=== PATIENT | male | born 1970 | race Caucasian/White ===

== ENCOUNTER 2019-12-12 06:22 | Day surgery (SDC) | payer MEDICARE, MEDICAID, SELFPAY ==
[2019-12-05 15:05] VITALS: BMI 37.5
--- NOTE | 2019-12-11 09:07 | HO.ANESPROP2 ---
Documented by User: Marilin Burch 12/11/19 09:08 HPI - Anesthesia Eval Consult details Narrative: 49yo M for Colonoscopy FOR[facility] Past Medical History Medical History Anxiety Back pain CVA (cerebral vascular accident) Depression Diabetes Elevated cholesterol HTN (hypertension) Hx of renal calculi PTSD (post-traumatic stress disorder) Sleep apnea Surgical History Surgical History H/O rotator cuff surgery Hx of lithotripsy Social History Social History Smoking Status: Former smoker Smoked in Last 30 Days: No Smoking Quit Date: 2009 Use of substances other than those prescribed or required for medical reasons: Yes Substance Use Frequency: Occasionally Advance Directives Information Provided: No Recently lost weight without trying: No Meds Allergies Allergy/AdvReac Type Severity Reaction Status Date / Time gabapentin Allergy Severe Confusion Verified 12/05/19 15:28 ibuprofen AdvReac Intermediate Gastrointestinal Verified 12/05/19 15:28 Upset Home Medications Medication Instructions Recorded Confirmed Type amlodipine [Norvasc] 5 mg PO DAILY 12/05/19 12/12/19 History ascorbic acid (vitamin C) [Vitamin 500 mg PO DAILY 12/05/19 12/05/19 History C] aspirin [Aspirin Low-Strength] 81 mg PO DAILY 12/05/19 12/05/19 History atorvastatin 40 mg PO BEDTIME 12/05/19 12/05/19 History hydrocodone-acetaminophen 1 tab PO BID PRN 12/05/19 12/05/19 History lisinopril 10 mg PO DAILY 12/05/19 12/05/19 History lorazepam 1 mg PO TID 12/05/19 12/12/19 History magnesium oxide 500 mg PO DAILY 12/05/19 12/12/19 History metformin 500 mg PO BID 12/05/19 12/05/19 History omega 7-uyi-hly-fish oil [Fish Oil] 1 cap PO DAILY 12/05/19 12/05/19 History simethicone 125 mg PO QID PRN 12/05/19 12/05/19 History tamsulosin 0.4 mg PO DAILY 12/05/19 12/05/19 History Exam Exam Date and Time: December 11, 2019 0907 Height,Weight and Vital Signs: Height 5 ft 2 in Weight 92.986 kg Assessment and Plan Assessment Anesthesia Assessment: Chart Reviewed Documented by User: Leny Azevedo 12/12/19 07:20 [facility] Past Medical History Medical History Anxiety Back pain CVA (cerebral vascular accident) Depression Diabetes Elevated cholesterol HTN (hypertension) Hx of renal calculi PTSD (post-traumatic stress disorder) Sleep apnea Surgical History Surgical History H/O rotator cuff surgery Hx of lithotripsy Social History Social History Smoking Status: Former smoker Smoked in Last 30 Days: No Smoking Quit Date: 2009 Use of substances other than those prescribed or required for medical reasons: Yes Substance Use Frequency: Occasionally Advance Directives Information Provided: No Recently lost weight without trying: No Meds Allergies Allergy/AdvReac Type Severity Reaction Status Date / Time gabapentin Allergy Severe Confusion Verified 12/05/19 15:28 ibuprofen AdvReac Intermediate Gastrointestinal Verified 12/05/19 15:28 Upset Home Medications Medication Instructions Recorded Confirmed Type amlodipine [Norvasc] 5 mg PO DAILY 12/05/19 12/12/19 History ascorbic acid (vitamin C) [Vitamin 500 mg PO DAILY 12/05/19 12/05/19 History C] aspirin [Aspirin Low-Strength] 81 mg PO DAILY 12/05/19 12/05/19 History atorvastatin 40 mg PO BEDTIME 12/05/19 12/05/19 History hydrocodone-acetaminophen 1 tab PO BID PRN 12/05/19 12/05/19 History lisinopril 10 mg PO DAILY 12/05/19 12/05/19 History lorazepam 1 mg PO TID 12/05/19 12/12/19 History magnesium oxide 500 mg PO DAILY 12/05/19 12/12/19 History metformin 500 mg PO BID 12/05/19 12/05/19 History omega 1-lnb-iuq-fish oil [Fish Oil] 1 cap PO DAILY 12/05/19 12/05/19 History simethicone 125 mg PO QID PRN 12/05/19 12/05/19 History tamsulosin 0.4 mg PO DAILY 12/05/19 12/05/19 History Exam Airway Mallampati Class: III TM Dist: >3cm Neck ROM: Full
[2019-12-12 06:46] VITALS: BP 146/95; PULSE 74; RESP 18; TEMP 36.5; O2SAT 7
[2019-12-12 06:46] LABS: Glucose, Whole Blood 165 mg/dL (60-115)
[2019-12-12] MEDS: Lactated Ringers 1,000 ML 100 ML IVCONT (06:58)
--- NOTE | 2019-12-12 07:45 | MHC.SHP ---
Pre-Procedural Eval Section A The patient is an INPATIENT: No The History & Physical has been completed within 30 days and I have reviewed it.: Yes Section B Chief Complaint: rectal bleed, screening Allergies: Allergies Allergy/AdvReac Type Severity Reaction Status Date / Time gabapentin Allergy Severe Confusion Verified 12/05/19 15:28 ibuprofen AdvReac Intermediate Gastrointestinal Verified 12/05/19 15:28 Upset Plan Diagnosis/Plan: Unchanged Patient has been examined and remains a candidate for the planned procedure
--- NOTE | 2019-12-12 08:28 | PM.OP ---
Brief Operative Note Date of procedure: 12/12/19 Pre-op diagnosis: colon cancer screening Post-op diagnosis: other (Colonic polyps) Procedure: Colonoscopy with excisional polypectomies x 2 cold bx forceps Implants: none Surgeon: Rasheeda Maguire MD Anesthesia: MAC (Tianna Sheppard CRNA) Estimated blood loss (mL): 5 Pathology: other (distal transverse colon, rectosigmoid) Condition: stable Disposition: PACU
[2019-12-12 08:29] VITALS: BP 121/74; PULSE 85; RESP 16; TEMP 36.1; O2SAT 96
[2019-12-12 08:44] VITALS: BP 125/80; PULSE 81; RESP 16; O2SAT 97
[2019-12-12 08:58] VITALS: PULSE 78; RESP 18; TEMP 36.1; O2SAT 96
--- NOTE | 2019-12-12 09:20 | HO.POSTANES ---
Post Anesthesia Evaluation Post Anesthesia Evaluation Vital Signs: Vital Signs Temp Pulse Resp BP Pulse Ox 12/12/19 08:58 96.9 F 78 18 96 12/12/19 08:44 81 16 125/80 97 12/12/19 08:29 97 F 85 16 121/74 96 12/12/19 06:46 97.7 F 74 18 146/95 H 7 L Anesthesia: Monitored Mental Status: Awake Pain Control: Satisfactory Nausea/Vomiting: None Hydration: Adequate Anesthesia-Related Issues: No Anes. Related Issues
--- NOTE | 2019-12-12 11:43 | OP_ITS ---
SURGEON: Rasheeda Maguire MD PREOPERATIVE DIAGNOSES: Colon cancer screening, history of polyps. Comorbid med problems: Hypertension, Diabetes, Elevated BMI--36 POSTOPERATIVE DIAGNOSIS: Colonic polyp. PROCEDURE PERFORMED: Colonoscopy with excisional polypectomy x2. ESTIMATED BLOOD LOSS: Minimal. COMPLICATIONS: No complications. ANESTHESIA: Monitored. ANESTHESIOLOGIST: Juan Sheppard CRNA. ASSISTANTS: No assistant tennis coach. SPECIMENS: Specimens removed; distal transverse colon, rectosigmoid region. FINDINGS: Digital rectal exam revealed prostate to be normal to digital palpation. Prep was good to excellent. Scope was introduced without difficulty. It was navigated through the rectosigmoid, sigmoid, and up through descending, transverse, ascending colon down into the cecal cap. Appendiceal orifice was seen. Ileocecal valve was well seen. No mucosal abnormalities were appreciated in this area. Slow withdrawal of the scope. Good rotational views. In the distal transverse colon, tubular adenomatous appearing polyp was removed excisionally with cold biopsy forceps. Continued withdrawal. A more diminutive polyp was removed in the rectosigmoid region. Anorectal verge was clear. GENERAL COMMENT ON PROCEDURE: The patient had increased respiratory excursions throughout the procedure with sedation with underlying snoring making the polypectomies a little bit more tedious. PLAN AND CURRENT RECOMMENDATIONS: Repeat asymptomatic screening in a patient like this will be is 5 years. He will be re-contacted by the office for appropriate followup.: No grafts or implants. CONDITION: Postprocedure, stable. Rasheeda Maguire MD MEN/MODL / [id number] [facility]
== END 2019-12-12 09:27 | disposition home or self-care (01) ==
PROVIDERS: Visit Provider Internal Medicine Gastroenterology
PROC: 0DJD8ZZ Inspection of Lower Intestinal Tract, Via Natural or Artificial Opening Endoscopic (ICD-10-PCS; CPT 45378; principal; 2019-12-12 07:30)
DX: Z12.11 Encounter for screening for malignant neoplasm of colon (principal); K51.811 Other ulcerative colitis with rectal bleeding; D12.3 Benign neoplasm of transverse colon; K63.5 Polyp of colon; I10 Essential (primary) hypertension; F43.10 Post-traumatic stress disorder, unspecified; Z87.442 Personal history of urinary calculi; Z86.73 Personal history of transient ischemic attack (TIA), and cerebral infarction without residual deficits; Z87.891 Personal history of nicotine dependence; Z88.8 Allergy status to other drugs, medicaments and biological substances; Z79.82 Long term (current) use of aspirin; Z79.84 Long term (current) use of oral hypoglycemic drugs; Z79.899 Other long term (current) drug therapy
CPT/HCPCS: 45380; 82947; 88305; J3010

== ENCOUNTER → 2020-01-06 12:41 | Outpatient (BNVA) | payer MEDICARE, MEDICAID, SELFPAY | PROVIDERS: PCP Internal Medicine; Visit Provider Internal Medicine Gastroenterology | DX: D12.3 Benign neoplasm of transverse colon (principal); Z80.0 Family history of malignant neoplasm of digestive organs; Z98.890 Other specified postprocedural states | CPT/HCPCS: 99212 ==

== ENCOUNTER → 2020-08-25 09:44 | Outpatient (BNVA) | payer MEDICARE, MEDICAID, SELFPAY | PROVIDERS: PCP Internal Medicine; Visit Provider Physician Assistant | DX: K62.5 Hemorrhage of anus and rectum (principal); R14.0 Abdominal distension (gaseous) | CPT/HCPCS: 99202 ==

== ENCOUNTER 2020-09-10 10:50 | Outpatient (REF) | payer MEDICARE, MEDICAID, SELFPAY ==
[2020-09-10 11:53] LABS: FIT1 POSITIVE (NEGATIVE); FIT2 NEGATIVE (NEGATIVE)
[2020-09-10 11:54] LABS: FIT Int Ctl YES
== END 2020-09-10 10:51 | disposition home or self-care (01) ==
LOC: HO.LNP 10:50
PROVIDERS: Visit Provider Physician Assistant
DX: K56.2 Volvulus (principal)
CPT/HCPCS: 82274

== ENCOUNTER 2020-09-15 09:59 | Outpatient (REF) | payer MEDICARE, MEDICAID, SELFPAY ==
--- NOTE | ~2020-09-15 | US_ITS ---
EXAMINATION: US COMPLETE ABDOMEN WITH LIVER ELASTOGRAPHY CLINICAL INFORMATION: Abdominal distention COMPARISON: None. TECHNIQUE: Real-time imaging of the abdominal viscera. Noninvasive ultrasound liver fibrosis assessment is performed using [employer] ElastPQ point quantification shear wave elastography (pSWE) with a C5-2 MHz transducer. Multiple elastography samples are obtained. FINDINGS: PANCREAS:The visualized pancreatic head and body are normal in appearance. The remainder of the pancreas is obscured from visualization by the overlying bowel gas. ABDOMINAL AORTA: The proximal abdominal aorta is not visualized. The distal and the mid abdominal aorta is of normal caliber. INFERIOR VENA CAVA: Visualized portions are normal. LIVER: Liver is normal size and contour with increased echogenicity. There are areas of focal fatty sparing adjacent to gallbladder. No focal lesion or intrahepatic biliary duct dilatation. The right lobe measures 18.8 cm in length. The left lobe measures 12.5 cm in length. Portal flow is hepatopedal. Shear wave liver elastography median stiffness is 1.32 m/s (reference: normal median stiffness is 1.3 m/s or less). IQR/median stiffness to assess sampling precision is 0.19 (reference: good quality data set is IQR/median stiffness of 0.15 or less). GALLBLADDER: The gallbladder is suboptimally visualized or not distended. No echogenic stones seen. COMMON BILE DUCT: Normal in caliber measuring 0.3 cm in diameter. RIGHT KIDNEY: There is normal cortical thickness. There are no echogenic stones, cyst or hydronephrosis. The kidney measures 11.5 cm in maximum dimension. LEFT KIDNEY: There is an echogenic stone in the midpole measuring 0.6 x 0.3 x 0.6 cm. No additional echogenic stones seen. There is no caliectasis or hydronephrosis. The kidney measures 10.9 cm in maximum dimension. SPLEEN: Normal. The spleen measures 12.6 cm in maximum dimension. There is an accessory splenule measuring 2.2 x 2.1 x 2.0 cm. FREE FLUID: None. US/US abdomen comp w elastography IMPRESSION: 1. Diffuse fatty infiltration of liver with focal fatty sparing adjacent to gallbladder. 2. Liver elastography: Hepatic steatosis. Liver stiffness is high probable normal. 3. There is 2.2 cm splenule. REFERENCE: Society of Radiologists in Ultrasound Liver Stiffness Thresholds (2019): LIVER STIFFNESS THRESHOLDS: *Liver Stiffness equal or less than 1.3 m/s: High probability of being normal. *Liver Stiffness less than 1.7 m/s: In the absence of other known clinical signs, rules out compensated advanced chronic liver disease. *Liver Stiffness 1.7-2.1 m/s: Suggestive of compensated advanced chronic liver disease but need further test for confirmation. *Liver Stiffness over 2.1 m/s: Rules in compensated advanced chronic liver disease. *Liver Stiffness over 2.4 m/s: Suggestive of clinically significant portal hypertension. QUALITY OF DATA SET: *IQR/Median value equal or less than 0.15 implies a quality data set. *IQR/Median value over 0.15 implies a poor quality data set. SIGNIFICANT CHANGE FROM PRIOR EXAM: Significant change if liver stiffness measurement is 10% or greater from prior exam. OTHER CONSIDERATIONS: The stage of liver fibrosis may be overestimated in the setting of acute hepatitis, liver inflammation, elevated liver function tests, hepatic vascular congestion, obstructive cholestasis, non-fasting state, and infiltrative diseases such as amyloidosis and lymphoma. In some patients with NAFLD, the liver stiffness thresholds for compensated advanced chronic liver disease may be lower. In causes other than viral hepatitis and NAFLD, liver stiffness thresholds are not well established.
== END 2020-09-15 10:00 | disposition home or self-care (01) ==
LOC: HO.US 09:59
PROVIDERS: Visit Provider Physician Assistant
DX: R14.0 Abdominal distension (gaseous) (principal)
CPT/HCPCS: 76705; 76981

== ENCOUNTER → 2020-09-22 09:56 | Outpatient (BNVA) | payer MEDICARE, MEDICAID, SELFPAY | PROVIDERS: PCP Internal Medicine; Visit Provider Physician Assistant | DX: D12.6 Benign neoplasm of colon, unspecified (principal); R19.5 Other fecal abnormalities; E11.9 Type 2 diabetes mellitus without complications; I10 Essential (primary) hypertension; E78.00 Pure hypercholesterolemia, unspecified; F41.8 Other specified anxiety disorders; Z88.8 Allergy status to other drugs, medicaments and biological substances | CPT/HCPCS: 99212 ==

== ENCOUNTER → 2021-04-29 10:33 | Outpatient (BNVA) | payer MEDICARE, MEDICAID, SELFPAY | PROVIDERS: PCP Internal Medicine; Visit Provider Physician Assistant | DX: Z13.89 Encounter for screening for other disorder (principal) | CPT/HCPCS: Q3014 ==